=== PATIENT | female | born 1990 ===

== ENCOUNTER 2018-01-20 17:37 | Emergency (ER) | payer SELFPAY ==
--- NOTE | 2018-01-20 18:40 | ED PDOC ---
Arrival/HPI - General Chief Complaint: Abnormal Skin Integrity Time Seen by Provider: 01/20/18 18:38 - History of Present Illness Narrative History of Present Illness (Text): 01/20/18 18:39 Patient was not in the room. Patient had ELOPED before seen by me. Mary RN is aware of it. Past Medical History - Provider Review Nursing Documentation Reviewed: Yes - Cardiac Hx Cardiac Disorders: No - Pulmonary Hx Respiratory Disorders: Yes Hx Asthma: Yes - Neurological Hx Neurological Disorder: No - HEENT Hx HEENT Disorder: No - Renal Hx Renal Disorder: No - Endocrine/Metabolic Hx Endocrine Disorders: No - Hematological/Oncological Hx Blood Disorders: No - Integumentary Hx Dermatological Disorder: No - Musculoskeletal/Rheumatological Hx Musculoskeletal Disorders: No - Gastrointestinal Hx Gastrointestinal Disorders: No - Genitourinary/Gynecological Hx Genitourinary Disorders: No - Psychiatric Hx Psychophysiologic Disorder: No Hx Substance Use: No - Surgical History Hx Section: Yes Family/Social History - Physician Review Nursing Documentation Reviewed: Yes Family/Social History: Other ([facility]) Smoking Status: Never Smoked Hx Alcohol Use: Yes Frequency of alcohol use: Socially Hx Substance Use: No Allergies/Home Meds Allergies/Adverse Reactions: Allergies egg Allergy (Verified 01/20/18 18:30) SHORTNESS OF BREATH milk Allergy (Verified 01/20/18 18:30) SHORTNESS OF BREATH peanut Allergy (Verified 01/20/18 18:30) SHORTNESS OF BREATH Home Medications: Home Meds Medication Instructions Recorded Confirmed No Known Home Med 01/20/18 01/20/18 Physical Exam Vital Signs Temp Pulse Resp BP Pulse Ox 01/20/18 18:31 98.3 F 103 H 18 139/76 98 Disposition/Present on Arrival - Present on Arrival Any Indicators Present on Arrival: No History of DVT/PE: No History of Uncontrolled Diabetes: No Urinary Catheter: No History of Decub. Ulcer: No History Surgical Site Infection Following: None - Disposition Have Diagnosis and Disposition been Completed?: Yes Diagnosis: Facial laceration Disposition: LEFT W/O BEING SEEN - ER ONLY Disposition Time: 18:39 Condition: UNKNOWN
[2018-01-20 18:51] VITALS: BP 139/76; PULSE 103; RESP 18; TEMP 98.3; O2SAT 98; BMI 30.2
== END 2018-01-20 18:40 | disposition left against medical advice (07) ==
LOC: ED 17:37
DX: Z02.89 Encounter for other administrative examinations (principal); S01.81XA Laceration without foreign body of other part of head, initial encounter

== ENCOUNTER 2018-10-10 18:11 | Emergency (ER) | payer MEDICAID ==
[2018-10-10 18:30] VITALS: BMI 34.3
[2018-10-10 18:37] VITALS: RESP 18
--- NOTE | 2018-10-10 19:09 | ED PDOC ---
Arrival/HPI - General Chief Complaint: Female Genitourinary Time Seen by Provider: 10/10/18 18:44 Historian: Patient - History of Present Illness Narrative History of Present Illness (Text): 10/10/18 19:05 A 28 year old female, whose past medical history includes bronchial asthma, C- section x 1, tonsillectomy, and UTI, presents to the emergency department complaining of hematuria. LMP 09/19/2018 and was sexually active 1 month ago (has not been tested for STI's). Patient reports also experiencing itchiness/redness to vaginal area and vaginal brown discharge for approximately 1 week. States she has been using itch relief cream brand name Monistat. Patient denies any fever, dysuria, or any other complaints at this time. Past Medical History - Provider Review Nursing Documentation Reviewed: Yes - Infectious Disease Hx of Infectious Diseases: None - Cardiac Hx Cardiac Disorders: No - Pulmonary Hx Respiratory Disorders: Yes Hx Asthma: Yes - Neurological Hx Neurological Disorder: No - HEENT Hx HEENT Disorder: No - Renal Hx Renal Disorder: No - Endocrine/Metabolic Hx Endocrine Disorders: No - Hematological/Oncological Hx Blood Disorders: No - Integumentary Hx Dermatological Disorder: No - Musculoskeletal/Rheumatological Hx Musculoskeletal Disorders: No - Gastrointestinal Hx Gastrointestinal Disorders: No - Genitourinary/Gynecological Hx Genitourinary Disorders: Yes Hx Urinary Tract Infection: Yes (1 MONTH AGO TREATED) - Psychiatric Hx Psychophysiologic Disorder: No Hx Substance Use: No - Surgical History Hx Section: Yes - Anesthesia Hx Anesthesia: Yes - Suicidal Assessment Feels Threatened In Home Enviroment: No Family/Social History - Physician Review Nursing Documentation Reviewed: Yes Family/Social History: No Known Family HX Smoking Status: Never Smoked Hx Alcohol Use: No Hx Substance Use: No Allergies/Home Meds Allergies/Adverse Reactions: Allergies egg Allergy (Verified 10/10/18 18:30) SHORTNESS OF BREATH milk Allergy (Verified 10/10/18 18:30) SHORTNESS OF BREATH peanut Allergy (Verified 10/10/18 18:30) ANAPHYLAXIS shrimp Allergy (Verified 10/10/18 18:30) ANAPHYLAXIS seafood Allergy (Uncoded 10/10/18 18:30) ANAPHYLAXIS Home Medications: Home Meds Medication Instructions Recorded Confirmed Albuterol HFA [Ventolin HFA 90 2 puff IH Q4H PRN 02/10/16 10/10/18 mcg/actuation (8 g)] Albuterol Sulfate [Ventolin Hfa] 2 puff IH PRN PRN 08/16/18 10/10/18 Fluticasone/Salmeterol 250/50 2 puff INH BID 10/10/18 10/10/18 [Advair Diskus 250/50] Montelukast [Singulair] 5 mg INH DAILY 10/10/18 10/10/18 Review of Systems - Physician Review All systems were reviewed & negative as marked: Yes - Review of Systems Constitutional: absent: Fevers Genitourinary Female: Hematuria, Vaginal Discharge (brown), Other (itchiness/redness to vaginal region.). absent: Dysuria Physical Exam - Physical Exam Narrative Physical Exam (Text): Gen: VS reviewed, alert, well developed, well nourished, nontoxic, mild distress. ENT: normal pharynx. Eye: EOMI, PERRL. Neck: no JVD, supple, no adenopathy. CV: regular rate, regular rhythm, no rubs, no murmur, no gallops, S1, S2, pulses equal and strong. Pulm: no distress, clear to auscultation, diffuse wheezing, no rhonchi, breath sounds equal, no rales. Abd: some suprapubic tenderness, no guarding, no rebound, no rigidity, normal bowel sounds. Ext: no edema. Skin: good color, no rash, no cyanosis. Psych: responds appropriately to questions, normal affect. Neuro: oriented x 3, CN2-12 intact grossly, motor intact, sensation intact. Genitourinay: some erythema to vaginal region. Vital Signs Reviewed: Yes Vital Signs Temp Pulse Resp BP Pulse Ox 10/10/18 18:36 97.8 F 96 H 18 104/71 97 Temperature: Afebrile Blood Pressure: Normal Pulse: Regular Respiratory Rate: Normal Appearance: Positive for: Well-Appearing, Non-Toxic, Comfortable Pain Distress: None Mental Status: Positive for: Alert and Oriented X 3 Medical Decision Making ED Course and Treatment: 10/10/18 19:09 Impression: 28 year old female with itchiness/redness to vaginal region, with vaginal brown discharge and hematuria. Plan: -- Reassess and disposition Prior Visits: Notes and results from previous visits were reviewed. Patient was last seen in the emergency department on 08/16/2018 for dysuria and vague back discomfort. Patient was discharged home. Progress Notes: - Scribe Statement The provider has reviewed the documentation as recorded by the rGegor Booker Provider Scribe Attestation: All medical record entries made by the Scribe were at my direction and personally dictated by me. I have reviewed the chart and agree that the record accurately reflects my personal performance of the history, physical exam, medical decision making, and the department course for this patient. I have also personally directed, reviewed, and agree with the discharge instructions and disposition. Disposition/Present on Arrival - Present on Arrival Any Indicators Present on Arrival: No History of DVT/PE: No History of Uncontrolled Diabetes: No Urinary Catheter: No History of Decub. Ulcer: No History Surgical Site Infection Following: None - Disposition Have Diagnosis and Disposition been Completed?: Yes Diagnosis: Vulvovaginitis Disposition: HOME/ ROUTINE Disposition Time: 20:51 Patient Plan: Discharge Patient Problems: Current Active Problems Problem Status Onset Vulvovaginitis Acute Condition: STABLE Discharge Instructions (ExitCare): Vaginitis Additional Instructions: follow up with your primary care doctor for comprehensive testing for STD's. return for any new or worsening symptoms. Prescriptions: Metronidazole [Flagyl] 500 mg PO BID 7 Days #14 tablet Forms: [employer] ([place]), WORK NOTE
[2018-10-10] MEDS ORDERED: cefTRIAXone (Rocephin) 250 mg Inj IM STA (19:14)
[2018-10-10 20:23] LABS: URINE BILIRUBIN NEGATIVE (NEGATIVE); URINE BLOOD NEGATIVE (NEGATIVE); URINE GLUCOSE (UA) NEGATIVE (NEGATIVE); URINE LEUKOCYTE ESTERASE NEGATIVE Leu/uL (NEGATIVE); URINE PROTEIN NEGATIVE mg/dL (<30 mg/dL)
[2018-10-10 20:24] LABS: URINE APPEARANCE CLEAR (CLEAR); URINE COLOR YELLOW (YELLOW)
[2018-10-10 20:49] VITALS: BP 110/74; PULSE 87; TEMP 98; O2SAT 100
== END 2018-10-10 21:01 | disposition home or self-care (01) ==
LOC: ED 18:11
DX: N76.0 Acute vaginitis (principal)
CPT/HCPCS: 81003; 81025; 87086; 87491; 87591; 96372; 99283; J0696

== ENCOUNTER 2018-11-05 11:06 | Emergency (ER) | payer MEDICAID ==
[2018-11-05 11:07] VITALS: BMI 34.3
[2018-11-05 11:15] VITALS: RESP 18; TEMP 98.2
[2018-11-05] MEDS ORDERED: Albuterol-Ipratrop 3 mg / 0.5 (3 ml) UD IH STA (11:22)
--- NOTE | 2018-11-05 11:41 | ED PDOC ---
Arrival/HPI - General Chief Complaint: Flu-like Symptoms Time Seen by Provider: 11/05/18 11:07 Historian: Patient - History of Present Illness Narrative History of Present Illness (Text): 11/05/18 11:37 28yo female with pmhx of asthma who present with complaint nonproductive cough, chills, nausea, facial pain, nasal congestion, chest pain with cough, light headedness x 2days. states she used her inhaler this morning. Did not take any other medication. Reports subjective fever. Denies sick contact, diaphoresis, LE edema, nausea, vomiting, abdominal pain, focal weakness, visual changes, recent travel. states she didn't get the flu vaccine. Past Medical History - Provider Review Nursing Documentation Reviewed: Yes - Infectious Disease Hx of Infectious Diseases: None - Reproductive Currently : No - Cardiac Hx Cardiac Disorders: No - Pulmonary Hx Respiratory Disorders: Yes Hx Asthma: Yes - Neurological Hx Neurological Disorder: No - HEENT Hx HEENT Disorder: Yes Other/Comment: NASAL FX - Renal Hx Renal Disorder: No - Endocrine/Metabolic Hx Endocrine Disorders: No - Hematological/Oncological Hx Blood Disorders: No - Integumentary Hx Dermatological Disorder: No - Musculoskeletal/Rheumatological Hx Musculoskeletal Disorders: No - Gastrointestinal Hx Gastrointestinal Disorders: No - Genitourinary/Gynecological Hx Genitourinary Disorders: Yes Hx Sexually Transmitted Diseases: Yes Hx Urinary Tract Infection: Yes - Psychiatric Hx Psychophysiologic Disorder: Yes Hx Anxiety: Yes Hx Substance Use: No - Surgical History Hx Section: Yes - Anesthesia Hx Anesthesia: Yes - Suicidal Assessment Feels Threatened In Home Enviroment: No Family/Social History - Physician Review Nursing Documentation Reviewed: Yes Family/Social History: Unknown Family HX Smoking Status: Never Smoked Hx Alcohol Use: No Hx Substance Use: No Allergies/Home Meds Allergies/Adverse Reactions: Allergies egg Allergy (Verified 11/05/18 11:12) SHORTNESS OF BREATH milk Allergy (Verified 11/05/18 11:12) SHORTNESS OF BREATH peanut Allergy (Verified 11/05/18 11:12) ANAPHYLAXIS shrimp Allergy (Verified 11/05/18 11:12) ANAPHYLAXIS seafood Allergy (Uncoded 11/05/18 11:12) ANAPHYLAXIS Home Medications: Home Meds Medication Instructions Recorded Confirmed Albuterol HFA [Ventolin HFA 90 2 puff IH Q4H PRN 02/10/16 11/05/18 mcg/actuation (8 g)] RX: Prednisone [Deltasone] 40 mg PO DAILY 11/05/18 11/05/18 Review of Systems - Physician Review All systems were reviewed & negative as marked: Yes - Review of Systems Constitutional: Fevers Eyes: Normal ENT: Other (Nasal congestion) Respiratory: Cough Cardiovascular: Normal Gastrointestinal: Normal Genitourinary Female: Normal Musculoskeletal: Normal Skin: Normal Neurological: Normal Endocrine: Normal Hemo/Lymphatic: Normal Psychiatric: Normal Physical Exam Vital Signs Reviewed: Yes Vital Signs Temp Pulse Resp BP Pulse Ox 11/05/18 11:14 98.2 F 104 H 18 121/69 95 Temperature: Afebrile Blood Pressure: Normal Pulse: Regular Respiratory Rate: Normal Appearance: Positive for: Well-Appearing, Non-Toxic, Comfortable Pain Distress: None Mental Status: Positive for: Alert and Oriented X 3 - Systems Exam Head: Present: Atraumatic, Normocephalic Pupils: Present: PERRL Extroacular Muscles: Present: EOMI Conjunctiva: Present: Normal Mouth: Present: Moist Mucous Membranes Nose (Internal): Present: Boggy (B/L), Other (Tenderness over the right maxillary sinus) Neck: Present: Normal Range of Motion Respiratory/Chest: Present: Clear to Auscultation, Good Air Exchange. No: Respiratory Distress, Accessory Muscle Use, Wheezes, Decreased Breath Sounds, Rales, Retracting, Rhonchi, Tachypneic Cardiovascular: Present: Regular Rate and Rhythm, Normal S1, S2. No: Murmurs Abdomen: No: Tenderness, Distention, Peritoneal Signs Back: Present: Normal Inspection Upper Extremity: Present: Normal Inspection. No: Cyanosis, Edema Lower Extremity: Present: Normal Inspection. No: Edema Neurological: Present: GCS=15, CN II-XII Intact, Speech Normal Skin: Present: Warm, Dry, Normal Color. No: Rashes Psychiatric: Present: Alert, Oriented x 3, Normal Insight, Normal Concentration Medical Decision Making ED Course and Treatment: 11/06/18 19:23 Pt present to ED for stated history. Afebrile Rapid flu was negative chest xray - IMPRESSION: No active disease. Result was DW the pt. she was treated with Augmentin, antitussive for URI. Refe rred to her PMD - RAD Interpretation Radiology Orders: 11/05/18 11:21 CHEST PORTABLE [RAD] Stat - Medication Orders Current Medication Orders: Discontinued Medications Albuterol/Ipratropium (Duoneb 3 Mg/0.5 Mg (3 Ml) Ud) 3 ml IH STAT STA Stop: 11/05/18 11:23 Ibuprofen (Motrin Tab) 600 mg PO STAT STA Stop: 11/05/18 11:23 Disposition/Present on Arrival - Present on Arrival Any Indicators Present on Arrival: No History of DVT/PE: No History of Uncontrolled Diabetes: No Urinary Catheter: No History of Decub. Ulcer: No History Surgical Site Infection Following: None - Disposition Have Diagnosis and Disposition been Completed?: Yes Diagnosis: URI (upper respiratory infection) Disposition: HOME/ ROUTINE Disposition Time: 13:05 Patient Plan: Discharge Condition: STABLE Discharge Instructions (ExitCare): Viral Upper Respiratory Infection, Adult (DC) Additional Instructions: Follow up with your doctor Drink plenty of fluid and rest Take medication as directed Return to ED for any new or worsening symptoms Prescriptions: Amoxicillin/Clavulanate [Augmentin 875 MG-125 MG] 1 tab PO BID #14 tab Benzonatate [Tessalon Perles] 100 mg PO TID #20 sgl RX: Ibuprofen [Motrin Tab] 600 mg PO Q6 #15 tab Referrals: Gris Pabon MD [Medical Doctor] - Follow up with primary Forms: [employer] (Korean), WORK NOTE
[2018-11-05 12:28] VITALS: O2SAT 96
--- NOTE | 2018-11-05 12:56 | RAD ---
Date of service: 11/05/2018 HISTORY: cough COMPARISON: No prior. FINDINGS: LUNGS: No active pulmonary disease. PLEURA: No significant pleural effusion identified, no pneumothorax apparent. CARDIOVASCULAR: No aortic atherosclerotic calcification present. Normal cardiac size. No pulmonary vascular congestion. OSSEOUS STRUCTURES: No significant abnormalities. VISUALIZED UPPER ABDOMEN: Normal. OTHER FINDINGS: None. IMPRESSION: No active disease.
[2018-11-05] MEDS ORDERED: Amoxicillin-Clav 875-125 mg Tab PO STA (13:02)
[2018-11-05] MEDS ORDERED: guaiFENesin 100 mg/5 ml Syrup UD PO STA (13:03)
[2018-11-05 13:16] VITALS: BP 122/75; PULSE 89
--- NOTE | 2018-11-05 16:17 | CARD ---
APPROVED REPORT Date of service: 11/05/2018 EKG Measurement Heart [id number] MD [id number] <Conclusion> Sinus tachycardia with premature atrial complexes with aberrant conduction Otherwise normal ECG
== END 2018-11-05 13:25 | disposition home or self-care (01) ==
LOC: ED 11:06
DX: J06.9 Acute upper respiratory infection, unspecified (principal)

== ENCOUNTER 2018-12-12 18:40 | Emergency (ER) | payer MEDICAID ==
[2018-12-12 19:18] VITALS: BMI 32.1
[2018-12-12 21:34] LABS: BASO # 0.01 K/mm3 (0.0-2.0); BASO % 0.2 % (0.0-3.0); EOS # 0.5 (0.0-0.7); EOS % 8.3 % (1.5-5.0); HEMOGLOBIN 11.1 g/dL (12.0-16.0); LYMPH % 35.4 % (22.0-35.0); MEAN CELL VOLUME 93.8 fl (80.0-105.0); MEAN CORPUSCULAR HEMOGLOBIN 30.2 pg (25.0-35.0); MEAN CORPUSCULAR HGB CONC 32.2 g/dl (31.0-37.0); MEAN PLATELET VOLUME 9.7 fl (7.0-11.0); MONO # 0.5 (0.1-0.6); MONO % 8.2 % (1.0-6.0); RBC 3.68 10^6/uL (3.5-6.1); RED CELL DISTRIBUTION WIDTH 13.9 % (11.5-14.5); WHITE BLOOD COUNT 5.8 10^3/uL (4.5-11.0)
[2018-12-12 21:43] LABS: ALB/GLOB RATIO 1.2 (1.1-1.8); ALBUMIN 3.4 g/dL (3.0-4.8); BLOOD UREA NITROGEN 11 mg/dL (7-21); CALCIUM 8.8 mg/dL (8.4-10.5); GFR NON-AFRICAN AMERICAN > 60
[2018-12-12 21:49] LABS: ALT/SGPT 69 U/L (7-56); AST/SGOT 56 U/L (14-36)
--- NOTE | 2018-12-12 22:03 | ED PDOC ---
Arrival/HPI - General Chief Complaint: Back Pain Time Seen by Provider: 12/12/18 19:20 Historian: Patient - History of Present Illness Narrative History of Present Illness (Text): Maya Guaman is a 29 year old female who presents to the Emergency department for evaluation of possible infections status post abdominoplasty. Patient states she recently had an abdominoplasty performed in [place] on 11/23/2018 and presented today for concerns for possible infection. Patient noticed a whitish discoloration around umbilicus. Patient states she was supposed to follow-up with wound care but had issues with her insurance, was told needed a referral and never followed-up. Patient denies any fever, chills, or abdominal pain. Patient does report 1 week history of back pain but denies any trauma or injury. Patient states she was on antibiotics, which she completed and believes was Levaquin. Time/Duration: 1 week Symptom Onset: Gradual Symptom Course: Unchanged Activities at Onset: Light Past Medical History - Provider Review Nursing Documentation Reviewed: Yes - Infectious Disease Hx of Infectious Diseases: None - Cardiac Hx Cardiac Disorders: No - Pulmonary Hx Respiratory Disorders: Yes Hx Asthma: Yes - Neurological Hx Neurological Disorder: No - HEENT Hx HEENT Disorder: Yes Other/Comment: NASAL FX - Renal Hx Renal Disorder: No - Endocrine/Metabolic Hx Endocrine Disorders: No - Hematological/Oncological Hx Blood Disorders: No - Integumentary Hx Dermatological Disorder: No - Musculoskeletal/Rheumatological Hx Musculoskeletal Disorders: No - Gastrointestinal Hx Gastrointestinal Disorders: No - Genitourinary/Gynecological Hx Genitourinary Disorders: Yes Hx Sexually Transmitted Diseases: Yes Hx Urinary Tract Infection: Yes - Psychiatric Hx Psychophysiologic Disorder: Yes Hx Anxiety: Yes Hx Substance Use: No - Surgical History Hx Section: Yes - Anesthesia Hx Anesthesia: Yes - Suicidal Assessment Feels Threatened In Home Enviroment: No Family/Social History - Physician Review Nursing Documentation Reviewed: Yes Family/Social History: Unknown Family HX Smoking Status: Never Smoked Hx Alcohol Use: No Hx Substance Use: No Allergies/Home Meds Allergies/Adverse Reactions: Allergies egg Allergy (Verified 12/12/18 19:19) SHORTNESS OF BREATH milk Allergy (Verified 12/12/18 19:19) SHORTNESS OF BREATH peanut Allergy (Verified 12/12/18 19:19) ANAPHYLAXIS shrimp Allergy (Verified 12/12/18 19:19) ANAPHYLAXIS seafood Allergy (Uncoded 12/12/18 19:19) ANAPHYLAXIS Home Medications: Home Meds Medication Instructions Recorded Confirmed Albuterol HFA [Ventolin HFA 90 2 puff IH Q4H PRN 02/10/16 12/12/18 mcg/actuation (8 g)] Montelukast [Singulair] 10 mg PO DAILY 12/12/18 12/12/18 Review of Systems - Physician Review All systems were reviewed & negative as marked: Yes - Review of Systems Constitutional: Normal. absent: Fevers Eyes: Normal ENT: Normal Respiratory: Normal. absent: SOB, Cough Cardiovascular: Normal. absent: Chest Pain Gastrointestinal: Normal. absent: Abdominal Pain, Diarrhea, Nausea, Vomiting Genitourinary Female: Normal. absent: Dysuria, Frequency, Hematuria, Urine Output Changes Musculoskeletal: Back Pain. absent: Neck Pain Skin: Other (+discoloration to umbilicus s/p abdominoplasty) Neurological: Normal. absent: Headache, Dizziness Endocrine: Normal Hemo/Lymphatic: Normal Psychiatric: Normal Physical Exam Vital Signs Reviewed: Yes Vital Signs Temp Pulse Resp BP Pulse Ox 12/12/18 19:18 98.4 F 92 H 18 102/68 99 Temperature: Afebrile Blood Pressure: Normal Pulse: Regular Respiratory Rate: Normal Appearance: Positive for: Well-Appearing, Non-Toxic, Comfortable Pain Distress: None Mental Status: Positive for: Alert and Oriented X 3 - Systems Exam Head: Present: Atraumatic Mouth: Present: Moist Mucous Membranes Neck: Present: Normal Range of Motion Respiratory/Chest: Present: Clear to Auscultation, Good Air Exchange. No: Respiratory Distress, Accessory Muscle Use Cardiovascular: Present: Regular Rate and Rhythm, Normal S1, S2. No: Murmurs Abdomen: Present: Other (there is a large healing wound noted to the lower abdomen that goes from right flank around abdomen to left flank; there are absorable sutures noted to the sides of the abdomen bilaterally. there is a wound dehisence along the right lower aspect of the abdominal wound. there is slight erythema and granulation tissue noted within the umbilicus with [address] ). No: Tenderness, Distention, Rebound, Guarding Back: No: Midline Tenderness, Paraspinal Tenderness Neurological: Present: GCS=15, Speech Normal Skin: Present: Warm, Dry Psychiatric: Present: Alert, Oriented x 3, Normal Insight, Normal Concentration Medical Decision Making ED Course and Treatment: Impression: 29 year old female presented for evaluation of possible infection around umbilicus status post abdominoplasty. Plan: -- CBC, CMP -- Toradol -- Reassess and disposition Progress Notes: Consulted Dr. Chin, surgeon, on the case. Discussed with Dr. Archer, surgical technologist technical support professional, who will evaluate pt in Emergency department. cbc; wnl cmp; elevated lfts. The 1 nylon suture was removed from the umbilicus by me due to concern for surrounding infection and patients lack of follow up given her surgeon is in [place]. pt started on bactrim PO. pt advised to f/u with surgeon within the next 2 days. pt was advised of slightly elevated lfts and need for f/u with pmd. Patient verbalizes understanding of discharge instructions and need for immediate followup. All aspects of this case were discussed the attending of record. impression; wound infection, elevated lfts motrin every 6 hours as needed for pain bactrim 1 tablet twice daily x 7 days keep wounds clean and dry follow up with the surgeon within the next 2 days follow up with the primary care physician within the next 2 days follow up with the wound care center within the next 2 days. return immediately if symptoms worsen,persist or if new symptoms develop. Reassessment Condition: Re-examined, Improved - Lab Interpretations Lab Results: Total Bilirubin 0.6 mg/dL (0.2-1.3) 12/12/18 21:25 AST 56 U/L (14-36) H 12/12/18 21:25 ALT 69 U/L (7-56) H 12/12/18 21:25 Alkaline Phosphatase 87 U/L (38-126) 12/12/18 21:25 Total Protein 6.4 g/dL (5.8-8.3) 12/12/18 21:25 Albumin 3.4 g/dL (3.0-4.8) 12/12/18 21:25 Globulin 2.9 gm/dL 12/12/18 21:25 Albumin/Globulin Ratio 1.2 (1.1-1.8) 12/12/18 21:25 - Medication Orders Current Medication Orders: Discontinued Medications Ketorolac Tromethamine (Toradol) 30 mg IVP STAT STA Stop: 12/12/18 20:48 Last Admin: 12/12/18 21:00 Dose: 30 mg MAR Pain Assessment Document 12/12/18 21:00 LA (Rec: 12/12/18 21:00 LA [id number]) Pain Reassessment Is this a pain reassessment? No Sleep Is patient sleeping during reassessment? No Presence of Pain Presence of Pain Yes Pain Scale Used Protocol: PSCALES Pain Scale Used Numeric Location Pain Location Body Site Back Description Intensity of Pain at present 7 IVP Administration Document 12/12/18 21:00 LA (Rec: 12/12/18 21:00 LA [id number]) Charges for Administration # of IVP Administrations 1 - Scribe Statement The provider has reviewed the documentation as recorded by the Gregor Levin Provider Scribe Attestation: All medical record entries made by the Scribe were at my direction and personally dictated by me. I have reviewed the chart and agree that the record accurately reflects my personal performance of the history, physical exam, medical decision making, and the department course for this patient. I have also personally directed, reviewed, and agree with the discharge instructions and disposition. Disposition/Present on Arrival - Present on Arrival Any Indicators Present on Arrival: No History of DVT/PE: No History of Uncontrolled Diabetes: No Urinary Catheter: No History of Decub. Ulcer: No History Surgical Site Infection Following: None - Disposition Have Diagnosis and Disposition been Completed?: Yes Diagnosis: Wound infection after surgery Disposition: HOME/ ROUTINE Disposition Time: 22:30 Patient Plan: Discharge Patient Problems: Current Active Problems Problem Status Onset Wound infection after surgery Acute Condition: GOOD Discharge Instructions (ExitCare): Surgical Wound (DC), Wound Care (DC) Additional Instructions: motrin every 6 hours as needed for pain bactrim 1 tablet twice daily x 7 days keep wounds clean and dry follow up with the surgeon within the next 2 days follow up with the primary care physician within the next 2 days follow up with the wound care center within the next 2 days. return immediately if symptoms worsen,persist or if new symptoms develop. Prescriptions: Ibuprofen [Motrin] 600 mg PO Q6H PRN #20 tab PRN Reason: pain/fever reduction Sulfamethoxazole/Trimethoprim [Bactrim DS 800 mg-160 mg] 1 tab PO BID #14 tab Referrals: Ayde Villarreal MD [Primary Care Provider] - Follow up with primary Gris Pabon MD [Medical Doctor] - Follow up with primary [facility] [Outside] - Follow up with primary [facility] [Outside] - Follow up with primary [facility] [Outside] - Follow up with primary Forms: [employer] (Vietnamese), WORK NOTE
[2018-12-12 22:14] VITALS: BP 102/61; PULSE 89; RESP 16; TEMP 98; O2SAT 98
--- NOTE | 2018-12-12 22:14 | CP.PCM.CON ---
History of Present Illness - History of Present Illness History of Present Illness: General surgery consult note for Dr. Chin consulted for evaluation of protruding stitches s/p abdominoplasty 29 yr old female PMH asthma presents s/p abdominoplasty POD 19 with several protruding stitches. She notes she had the procedure in [place] and has not followed up with her surgeon or PMD. Patient denies any other associated SE[place], f/c, N/v, chest pain SOB abdominal pain and pain or weakness in her extremities. PMH: asthma PSH: Meds: albuterol, advair PMD: none Allergies: eggs, milk, peanuts, shrimp, seafood Review of Systems - Review of Systems All systems: reviewed and no additional remarkable complaints except (as per HPI) Past Patient History - Infectious Disease Hx of Infectious Diseases: None - Past Medical History & Family History Past Medical History?: Yes - Past Social History Smoking Status: Never Smoked - CARDIAC Hx Cardiac Disorders: No - PULMONARY Hx Respiratory Disorders: Yes Hx Asthma: Yes - NEUROLOGICAL Hx Neurological Disorder: No - HEENT Hx HEENT Problems: Yes Other/Comment: NASAL FX - RENAL Hx Chronic Kidney Disease: No - ENDOCRINE/METABOLIC Hx Endocrine Disorders: No - HEMATOLOGICAL/ONCOLOGICAL Hx Blood Disorders: No - INTEGUMENTARY Hx Dermatological Problems: No - MUSCULOSKELETAL/RHEUMATOLOGICAL Hx Musculoskeletal Disorders: No - GASTROINTESTINAL Hx Gastrointestinal Disorders: No - GENITOURINARY/GYNECOLOGICAL Hx Genitourinary Disorders: Yes Hx Sexually Transmitted Disorders: Yes Hx Urinary Tract Infection: Yes - PSYCHIATRIC Hx Psychophysiologic Disorder: Yes Hx Anxiety: Yes Hx Substance Use: No - SURGICAL HISTORY Hx Section: Yes - ANESTHESIA Hx Anesthesia: Yes Meds Home Medications: Home Medication List Medication Instructions Recorded Confirmed Type Ibuprofen [Motrin] 600 mg PO Q6H PRN #20 tab 12/12/18 Rx Sulfamethoxazole/Trimethoprim 1 tab PO BID #14 tab 12/12/18 Rx [Bactrim DS 800 mg-160 mg] Allergies/Adverse Reactions: Allergies Allergy/AdvReac Type Severity Reaction Status Date / Time egg Allergy SHORTNESS Verified 12/12/18 19:19 OF BREATH milk Allergy SHORTNESS Verified 12/12/18 19:19 OF BREATH peanut Allergy ANAPHYLAXIS Verified 12/12/18 19:19 shrimp Allergy ANAPHYLAXIS Verified 12/12/18 19:19 seafood Allergy ANAPHYLAXIS Uncoded 03/26/19 19:19 Physical Exam - Constitutional Appears: Well, Non-toxic, No Acute Distress - Head Exam Head Exam: ATRAUMATIC, NORMOCEPHALIC - Eye Exam Eye Exam: EOMI - ENT Exam ENT Exam: Mucous Membranes Moist - Respiratory Exam Respiratory Exam: NORMAL BREATHING PATTERN - Cardiovascular Exam Cardiovascular Exam: REGULAR RHYTHM - GI/Abdominal Exam GI & Abdominal Exam: Soft. absent: Distended, Guarding, Rebound, Tenderness Additional comments: abdominoplasty incision clean and dry with entirety intact except for small area of well granulated tissue at the midright portion of the incision, no purulence drainage or fluctuance, no foul odor, clear sutures seen at incision edges, single black stitch at umbilicus with surrounding granulation - Extremities Exam Extremities exam: Positive for: pedal pulses present. Negative for: calf tenderness, pedal edema, tenderness - Neurological Exam Neurological exam: Alert, Oriented x3 - Psychiatric Exam Psychiatric exam: Normal Affect, Normal Mood - Skin Skin Exam: Dry, Normal Color, Warm Additional comments: abdominoplasty incision clean and dry with entirety intact except for small area of well granulated tissue at the midright portion of the incision, no purulence drainage or fluctuance, no foul odor, clear sutures seen at incision edges, single black stitch at umbilicus with surrounding granulation Results - Vital Signs Recent Vital Signs: Last Vital Signs Temp 98.4 F 12/12/18 19:18 Pulse 92 H 12/12/18 19:18 Resp 18 12/12/18 19:18 BP 102/68 12/12/18 19:18 Pulse Ox 99 12/12/18 19:18 - Labs Result Diagrams: 12/12/18 21:25 12/12/18 21:25 Labs: Laboratory Results - last 24 hr 12/12/18 12/12/18 21:25 21:25 WBC 5.8 RBC 3.68 Hgb 11.1 L D Hct 34.5 L MCV 93.8 MCH 30.2 MCHC 32.2 RDW 13.9 Plt Count 305 MPV 9.7 Neut % (Auto) 47.9 L Lymph % (Auto) 35.4 H [place] % (Auto) 8.2 H Eos % (Auto) 8.3 H Baso % (Auto) 0.2 Lymph # (Auto) 2.0 [place] # (Auto) 0.5 Eos # (Auto) 0.5 Baso # (Auto) 0.01 Absolute Neuts (auto) 2.76 Sodium 137 Potassium 3.7 Chloride 104 Carbon Dioxide 29 Anion Gap 9 L BUN 11 Creatinine 0.6 L Est GFR ( Amer) > 60 Est GFR (Non-Af Amer) > 60 Random Glucose 68 L Calcium 8.8 Total Bilirubin 0.6 AST 56 H ALT 69 H Alkaline Phosphatase 87 Total Protein 6.4 Albumin 3.4 Globulin 2.9 Albumin/Globulin Ratio 1.2 Assessment & Plan - Assessment and Plan (Free Text) Assessment: 29 yr old female POD 19 from abdominoplasty in [place] with several visible stitches Plan: - recommend follow up with patient's original surgeon for future care - no drainage or purulence, incision does not appear to be infectious - abx per ED physician - pt will need referral for PMD - discussed with Dr. Chin, further recs per him Maryann Archer, PGY 1 - Date & Time Date: 12/12/18 Time: 21:55
[2018-12-12] MEDS ORDERED: Tmp-Smz 800 mg-160 mg DS Tab PO STA (22:49)
== END 2018-12-12 23:19 | disposition home or self-care (01) ==
LOC: ED 18:40
DX: T81.41XA Infection following a procedure, superficial incisional surgical site, initial encounter (principal)
CPT/HCPCS: 80053; 81025; 85025; 96374; 99283; J1885